=== PATIENT | female | born 1985 | race Asian ===

== ENCOUNTER 2022-07-27 05:40 | Inpatient (IN) ==
--- NOTE | 2022-07-21 08:39 | Anesthesiology Consultation ---
Date of Service July 21, 2022 Assessment & Plan (1) Encounter for pre-operative examination: Plan - COVID screening: Per wildfire prevention specialist on 07/20/2022: Travel screen negative, no known COVID-19 positive contacts or current COVID-19 related symptoms in past 2 weeks. To surgeon's discretion if preop COVID testing is needed. Chart Review Chart Review: Acceptable Risk for Surgery and Patient NOT seen in Pre Admission Testing History Surgery Operation Date: 07/27/22 07:30 Proposed Procedures p Primary Section in LD - Andree Fairbanks MD Height/Weight Height: 5 ft 4.5 in Weight: 87.997 kg Allergies Allergy/AdvReac Type Severity Reaction Status Date / Time phentermine AdvReac Anxiety, Verified 07/20/22 11:19 insomnia, palpitations Medications Home Medications Medication Instructions Recorded Confirmed Last Taken 1 tab PO QPM 07/20/22 07/20/22 Unknown iron 1 cap PO QAM 07/20/22 07/20/22 Unknown Past Medical History Medical History Anxiety Endometriosis GERD (gastroesophageal reflux disease) diet controlled History of migraine Iron deficiency anemia recent iron infusions PCOS (polycystic ovarian syndrome) TMJ (temporomandibular joint disorder) hx locking Past Family History Family History Other Adopted Past Surgical History Surgical History H/O ovarian cystectomy BL History of loop electrical excision procedure (LEEP) History of wisdom tooth extraction Social History Smoking Status: Never smoker Do You Dip or Chew Tobacco: No Hx Alcohol Use: No Hx Substance Use: No substance use type: does not use Testing Laboratory Results 07/20/2022 WBC: 8.9 H/H: 12/39 PLATELETS: 198
--- NOTE | 2022-07-26 14:19 | History & Physical Report ---
Date of Service July 26, 2022 Assessment & Plan (1) Breech presentation on examination: Plan: 36 yo at 39+ wks with breech presentation Scheduked for primary CSection VSS afebrile FHR reassuring Understands the risks and signed an informed consent plan to admit, monitor, labs, and proceed with surgery as planned (2) Encounter for pre-operative examination: History of Present Illness Chief Complaint: scheduled csection Primary Care Provider: Margaret Adhikari MD patient is a 36 yo at 39+ weeks who was scheduled for primary CSection for breech presentation. No complaints. Patient understands C section is a major surgery, with risks including but not limited to bleeding , infection, injury to surrounding organs like bowels, bladder, ureters, adhesions, scarring, wound infection, blood cloths in legs/ lungs, longer recovery. All questions were answered. She signed an informed consent. Allergies Allergy/AdvReac Type Severity Reaction Status Date / Time phentermine AdvReac Anxiety, Verified 07/20/22 11:19 insomnia, palpitations Home Medications Medication Instructions Recorded Confirmed Type 1 tab PO QPM 07/20/22 07/20/22 History iron 1 cap PO QAM 07/20/22 07/20/22 History Patient History Medical History Anxiety Endometriosis GERD (gastroesophageal reflux disease) diet controlled History of migraine Iron deficiency anemia recent iron infusions PCOS (polycystic ovarian syndrome) TMJ (temporomandibular joint disorder) hx locking Surgical History H/O ovarian cystectomy BL History of loop electrical excision procedure (LEEP) History of wisdom tooth extraction Family History Other Adopted Social History Smoking Status: Never smoker Second Hand Exposure: No; Do You Dip or Chew Tobacco: No; Hx Alcohol Use: No Hx Substance Use: No Preferred Language: Persian Communication Ability: Effective Registered Dietician Required: No Beliefs That Will Affect Care: None Current Living Situation: Family Feels Safe at Home: Yes Safety Concerns: Feels Safe At This Time Assistive Devices: Glasses Review of Systems as per Subjective / HPI Physical Exam Constitutional: WD/WN, vitals as above well developed, well nourished and comfortable Gastrointestinal (Abdomen): normal bowel sounds, soft, nontender, no hepatosplenomegaly (gravid) Genitourinary: OB Exam Monitor Tracing: + external uterine monitor used and + category I
[~2022-07-27 05:40] MED LIST: LACTATED RINGER'S 1,000 ML IV SCH
[2022-07-27] MEDS ORDERED: ceFAZolin 2000MG 2,000 MG/15 ML SYR IV SCH (06:00)
[2022-07-27] MEDS ORDERED: CITRIC ACID/SODIUM CITRATE 15 ML UDC PO SCH ×2 (06:00)
--- NOTE | 2022-07-27 06:31 | History and Physical Report ---
DATE OF ADMISSION: 07/27/2022. HISTORY OF PRESENT ILLNESS: The patient is a 36-year-old G1, P0, due date 07/29/2022, here for section. Fetus is in transverse presentation. course is unremarkable, except for advanced maternal age. PAST MEDICAL HISTORY: No history of diabetes, hypertension, or asthma. The patient has history of PCOS. PAST SURGICAL HISTORY: The patient had bilateral ovarian cystectomy. SOCIAL HISTORY: The patient denies tobacco, drug, or alcohol use. FAMILY HISTORY: Noncontributory. PHYSICAL EXAMINATION: GENERAL: A well-developed, well-nourished white female in no acute distress. VITAL SIGNS: Blood pressure 123/83, pulse of 67. HEART: S1 and S2, regular rhythm and rate. LUNGS: Clear to auscultation bilaterally. ABDOMEN: Gravid. Bedside ultrasound shows transverse presentation with back down. EXTREMITIES: No cyanosis, clubbing or edema. ASSESSMENT AND PLAN: A 36-year-old G1, P0 at term, transverse presentation. The patient wishes to have section. Discussed with the patient options including version. Risks of surgery discussed with the patient including infection, bleeding, damage to structures around where surgery has been performed. We also discussed risks of venous thrombolic embolism. Consent is signed. Surgery will proceed as scheduled. Job ID: [id number] [facility]
[2022-07-27 06:32] LABS: Basophils # (auto) 0.03 K/uL (0-0.2); Basophils % (auto) 0.4 %; Eosinophils % (auto) 1.3 %; Hematocrit (blood only) 35.1 % (37.0-47.0); Hemoglobin 11.7 g/dl (12.0-16.0); Immature Granulocytes # (auto) 0.06 K/uL (0.01-0.20); Immature Granulocytes % (auto) 0.8 %; Lymphocytes # (auto) 2.51 K/uL (1.2-3.4); Lymphocytes % (auto) 32.8 %; Mean Corpuscular Hemoglobin 28.8 pg (25.0-34.0); Mean Corpuscular Hgb Conc 33.3 g/dL (32.0-36.0); Mean Corpuscular Volume 86.5 fL (80.0-100.0); Mean Platelet Volume 10.8 fL (9.4-12.4); Monocytes # (auto) 0.32 K/uL (0.11-0.59); Monocytes % (auto) 4.2 %; Neutrophils # (auto) 4.63 K/uL (1.40-6.50); Neutrophils % (auto) 60.5 %; Platelet Count 184 K/uL (130-400); RDW Coefficient of Variation 13.6 % (11.5-14.5); RDW Standard Deviation 42.5 fL (36.4-46.3); Red Blood Count 4.06 M/uL (4.20-5.40); White Blood Count 7.65 K/ul (4.8-10.8)
[2022-07-27] MEDS ORDERED: MoRPHine SULFATE PF 1 MG/ML 10 ML AMP/VIAL ONE (06:57)
[2022-07-27] MEDS ORDERED: fentaNYL citrate PF 100 MCG/2 ML VIAL ONE (06:57)
[2022-07-27] MEDS ORDERED: ONDANSETRON INJ 2 MG/ML 2 ML VIAL ONE (06:57)
[2022-07-27] MEDS ORDERED: KETOROLAC 30 MG/ML VIAL ONE (06:57)
[2022-07-27] MEDS ORDERED: OXYTOCIN 10 UNITS/ML 10ML VIAL ONE (06:57)
[2022-07-27] MEDS ORDERED: PHENYLEPHRINE HCL 10 MG/ML VIAL ONE (06:57)
--- NOTE | 2022-07-27 07:39 | History & Physical Report ---
Date of Service July 27, 2022 Assessment & Plan (1) Encounter for pre-operative examination: (2) Transverse lie: Plan: Patient is a 36 yo at 39+ weeks who was scheduled for primary C Section for transverse presentation. VSS Afebrile FHR reassuring Plan to admit, monitor, lbs, IVF, IV AB and proceed with surgery as planned All questions were answered. Admission and Anticipated Discharge Date Admission Date: July 27, 2022 History of Present Illness Primary Care Provider: Margaret Adhikari MD Patient is a 36 yo at 39+ weeks who was scheduled for primary C Section for transverse presentation. No complaints. No ctxs/ LOF/VB +FM Her has been uncomplicated except above. Patient understands C section is a major surgery, with risks including but not limited to bleeding , infection, injury to surrounding organs like bowels, bladder, ureters, adhesions, scarring, wound infection, blood cloths in legs/ lungs, longer recovery. All questions were answered. She signed an informed consent. Allergies Allergy/AdvReac Type Severity Reaction Status Date / Time phentermine AdvReac Anxiety, Verified 07/20/22 11:19 insomnia, palpitations Home Medications Medication Instructions Recorded Confirmed Type 1 tab PO QPM 07/20/22 07/20/22 History iron 1 cap PO QAM 07/20/22 07/20/22 History Patient History Medical History Anxiety Endometriosis GERD (gastroesophageal reflux disease) diet controlled History of migraine Iron deficiency anemia recent iron infusions PCOS (polycystic ovarian syndrome) TMJ (temporomandibular joint disorder) hx locking Surgical History H/O ovarian cystectomy BL History of loop electrical excision procedure (LEEP) History of wisdom tooth extraction Family History Other Adopted Social History Smoking Status: Never smoker Second Hand Exposure: No; Hx Alcohol Use: No Hx Substance Use: No Preferred Language: Citizen Of [place] Communication Ability: Effective Application Packaging Consultant Required: No Beliefs That Will Affect Care: None marital status: Current Living Situation: Spouse and Parent Feels Safe at Home: Yes Assistive Devices: Glasses Review of Systems as per Subjective / HPI Physical Exam Constitutional: WD/WN, vitals as above well developed, well nourished and comfortable Gastrointestinal (Abdomen): normal bowel sounds, soft, nontender, no hepatosplenomegaly (gravid) Genitourinary: OB Exam Monitor Tracing: + external uterine monitor used and + category I Results & Data ([facility]) Vital Signs (Past 12 Hours) Vital Signs Temp Pulse Resp BP 07/27/22 06:00 36.7 C 67 16 123/83 07/27/22 07:05 77 132/76 07/27/22 05:56 67 123/83
[2022-07-27] MEDS ORDERED: MoRPHine SULFATE PF 1 MG/ML 10 ML AMP/VIAL INT SPINAL ONE (08:37)
[2022-07-27] MEDS ORDERED: NALBUPHINE HCL INJ 10 MG/ML AMP IV PRN (08:37)
[2022-07-27] MEDS ORDERED: ePHEDrine sulfate 50 MG/ML AMP IV PRN (08:37)
[2022-07-27] MEDS ORDERED: NALOXONE HCL 0.08 MG in SYRINGE 1.8 ML IV PRN (08:37)
[2022-07-27] MEDS ORDERED: NALOXONE HCL 1 MG in SODIUM CHLORIDE 0.9% 1000ML 1,000 ML IV PRN (08:37)
[2022-07-27] MEDS ORDERED: ACETAMINOPHEN 1,000 MG/100 ML VIAL IV PRN (08:37)
[2022-07-27] MEDS ORDERED: HYDROmorphone INJ 0.5 MG/0.5 ML SYR IV PRN (08:37)
[2022-07-27] MEDS ORDERED: diphenhydrAMINE 50 MG/ML VIAL IV PRN (08:37)
[2022-07-27] MEDS ORDERED: NALOXONE HCL 0.4 MG/1 ML VIAL/CARP IV PRN (08:37)
[2022-07-27] MEDS ORDERED: ONDANSETRON INJ 2 MG/ML 2 ML VIAL IV PRN (08:37)
[2022-07-27] MEDS ORDERED: LACTATED RINGER'S 500 ML IV PRN (08:37)
[2022-07-27] MEDS ORDERED: PROMETHAZINE HCL 12.5 MG in SODIUM CHLORIDE 0.9% 50 ML IV PRN (08:37)
[2022-07-27] MEDS ORDERED: DC INTRASPINAL MORPHINE SCH (08:45)
[2022-07-27] MEDS ORDERED: NO NARCOTICS OR SEDATIVES SCH (08:45)
[2022-07-27] MEDS ORDERED: SODIUM CHLORIDE 0.9% 1000ML 1,000 ML IV SCH (08:45)
[2022-07-27] MEDS ORDERED: SENNA 8.6 MG TAB PO PRN (09:22)
[2022-07-27] MEDS ORDERED: HYDROCORTISONE ACETATE 25 MG SUPP PR PRN (09:22)
[2022-07-27] MEDS ORDERED: MEASLES, MUMPS & RUBELLA VIRUS VIAL SQ ONE (09:22)
[2022-07-27] MEDS ORDERED: DIPHTHERIA/TETANUS/PERTUSSIS 0.5mL SYR/VIAL (Age 7+yrs) IM ONE (09:22)
[2022-07-27] MEDS ORDERED: MAGNESIUM HYDROXIDE SUSP 30 ML UDC PO PRN (09:22)
[2022-07-27] MEDS ORDERED: BENZOCAINE 20% AER SPR 82.5 GM CAN EXT PRN (09:22)
--- NOTE | 2022-07-27 09:25 | Post Operative Brief Note ---
Immediate Post Op Note v1 Date of Surgery July 27, 2022 Pre & Post Diagnosis Operation Date: 07/27/22 07:30 Pre-Op Diagnosis: 1. Term 2. Transverse lie Post-Op Diagnosis: Same I identified the patient and participated in the time-out.: Yes Procedure Operation Date: 07/27/22 07:30 Actual Procedures p Primary Section with the of a live male child at 0840. - Andree Fairbanks MD Surgeon Andree Fairbanks MD Signaling Project Engineer Dr Gaona Estimated Blood Loss 600 Findings Consistent with Post-Op Diagnosis Drains Horan Catheter (Horan cath placed after spinal. Clear yellow urine noted upon insertion of horan. ) Anesthesia Type Spinal Complications none Disposition Accompanied Patient To Recovery: Yes
[2022-07-27] MEDS ORDERED: LACTATED RINGER'S 1,000 ML IV SCH ×2 (09:30→14:45)
[2022-07-27] MEDS ORDERED: ARISTA ABSORBABLE HEMOSTAT 3GM TOP ONE (09:47)
--- NOTE | 2022-07-27 10:42 | Operative Report (OR) ---
DATE OF SURGERY: 07/27/2022. PREOPERATIVE DIAGNOSIS: The patient is a 36-year-old 1, para 0 at 39 weeks and 5 days of gestation, who was scheduled for primary for transverse lie of fetus. POSTOPERATIVE DIAGNOSIS: The patient is a 36-year-old 1, para 0 at 39 weeks and 5 days of gestation, who was scheduled for primary for transverse lie of fetus. PROCEDURE: Primary low transverse with Pfannenstiel skin incision and delivery of a live male at 8:40 a.m. SURGEON: Andree Fairbanks MD. GRATING MACHINE OPERATOR: Molly Gaona MD. ESTIMATED BLOOD LOSS: 600 mL DRAINS: Burger catheter drained 200 mL of clear urine. ANESTHESIA: Spinal. ANESTHESIOLOGIST: Dr. Fox. COMPLICATIONS: None. FINDINGS: Baby was a viable male infant delivered in transverse lie presentation at 8:40 a.m. Apgars were 8/9, weight is 3375 gr. Maternal findings: The patient had a history of bilateral ovarian cystectomies for endometriosis. Uterus appeared to be normal, except increased vascularity in the anterior wall and cul-de-sac was obliterated from prior surgery and most likely from adhesions and endometriosis. Unable to see fallopian tubes or ovaries. DESCRIPTION OF PROCEDURE: The patient was taken to the operating room where spinal anesthesia was given without difficulty. She was placed in dorsal supine position with a leftward tilt. She was prepared and draped in the usual sterile fashion. A Pfannenstiel skin incision was made, carried through to the underlying layer of fascia with the Bovie. Fascia was incised in the midline and incision was extended laterally with the help of Valenzuela scissors and fascia was dissected from rectus muscles superiorly and inferiorly and the rectus muscles were in the midline and the peritoneum was then entered bluntly with fingers. Peritoneal incision was extended superiorly and inferiorly with good visualization of the bladder. Bladder blade was inserted. Uterus was tilted toward the patient's left and the front anterior serosa had increased vascularity and the bladder was very low down in the pelvis, unable to grasp vesicouterine peritoneum. Decision was made to proceed with the uterine incision as low transverse as planned. Uterus was incised in the lower segment and the incision was extended laterally with the help of fingers and membranes were ruptured. Clear fluid was obtained. The baby was in the transverse lie position, head on the right and feet on the left and I was able to grasp the one fett and leg and then the other one and brought to the incision and delivered both feet, legs, buttocks and body, and then arms in flexion position and the head without difficulty. Mouth and nose were suctioned. Cord was clamped x2 and cut and baby was handed off to the waiting pediatric team and then cord blood was obtained. Placenta was delivered manually as intact and complete. Uterus was exteriorized and cleared of all clots and debris. Uterine incision was repaired with 0 Vicryl in a running locked fashion. Second imbricating layer was placed with another 0 Vicryl in a running locked fashion. Excellent hemostasis was achieved. We were unable to see the ovaries and fallopian tubes due to the adhesion on the posterior cul-de-sac. Uterus was returned to the abdomen. Pelvis was irrigated with warm normal saline and suctioned and the gutters were also irrigated with warm normal saline and suctioned and excellent hemostasis was achieved. Parietal peritoneum was reapproximated with 3-0 Vicryl in a running fashion and the rectus muscles were reapproximated with 2-0 Vicryl in a running fashion. Excellent hemostasis was achieved. Rectus fascia was reapproximated with 0 Vicryl, starting from both corners meeting in the midline and then subcuticular fat tissue was brought together with 3-0 Vicryl in a running fashion and the skin was closed with 4-0 Monocryl in a subcuticular fashion. The patient tolerated the procedure well. Sponge, lap, needle and instrument count was correct x3. No complications happened. I was and Dr. Gaona was present during whole procedure. She has received 2 grams of Cefazolin before surgery and was taken to recovery room in stable condition. Dr. Gaona, my care management assistant, was needed for retraction, aid in delivery of and hemostasis. Job ID: [id number] [facility]
[2022-07-27] MEDS: OXYTOCIN 20 UNITS in LACTATED RINGER'S 1,000 ML IV SCH ×2 (11:06→19:44)
--- NOTE | 2022-07-27 11:10 | Anesthesiology Progress Note ---
Date of Service July 27, 2022 Anesthesia Post Procedure Vital Signs Vital Signs: Temp Pulse Resp BP Pulse Ox 07/27/22 10:34 22 07/27/22 10:24 16 07/27/22 10:14 16 07/27/22 09:54 18 07/27/22 10:04 18 07/27/22 09:44 18 07/27/22 09:34 97.7 F 20 07/27/22 06:00 98.1 F 67 16 123/83 07/27/22 11:07 67 98 07/27/22 11:03 62 105/66 07/27/22 11:02 62 99 07/27/22 10:57 64 98 07/27/22 10:53 63 105/65 07/27/22 10:52 64 98 07/27/22 10:47 62 98 07/27/22 10:43 64 102/60 07/27/22 10:42 65 97 07/27/22 10:37 74 96 07/27/22 10:33 65 100/61 07/27/22 10:32 69 97 07/27/22 10:27 69 98 07/27/22 10:23 64 98/61 L 07/27/22 10:22 70 97 07/27/22 10:17 64 97 07/27/22 10:13 64 102/62 07/27/22 10:12 66 97 07/27/22 10:07 67 97 07/27/22 10:03 64 96/61 L 07/27/22 10:02 69 97 07/27/22 09:57 66 98 07/27/22 09:54 66 91/54 L 07/27/22 09:52 69 98 07/27/22 09:47 65 98 07/27/22 09:44 63 99/58 L 07/27/22 09:42 61 98 07/27/22 09:41 61 101/56 L 07/27/22 09:37 63 98 07/27/22 09:33 59 L 98/56 L 07/27/22 09:31 58 L 99 07/27/22 09:28 59 L 100/59 L 07/27/22 07:05 77 132/76 07/27/22 05:56 67 123/83 Transfer of Care Handoff Completed per policy Notes Mental Status: alert / awake / arousable and participated in evaluation Patient Amnestic to Procedure: Yes Nausea / Vomiting: adequately controlled Pain: adequately controlled Airway Patency, RR, SpO2: stable & adequate BP & HR: stable & adequate Hydration State: stable & adequate Neuraxial Anesthesia: was administered and sensory block is resolving Anesthetic Complications: no major complications apparent and Pt Satisfied with anesthetic care
[2022-07-27] MEDS: SIMETHICONE 80 MG CHEW PO SCH ×3 (13:45→21:11)
[2022-07-27] MEDS: KETOROLAC 30 MG/ML VIAL IV PRN ×2 (16:28→23:31)
[2022-07-27] MEDS: DOCUSATE SODIUM 100 MG CAP PO SCH (21:11)
[2022-07-28] MEDS ORDERED: diphenhydrAMINE Capsule 25 MG CAP PO PRN (02:37)
[2022-07-28] MEDS ORDERED: PROMETHAZINE HCL 25 MG in SODIUM CHLORIDE 0.9% 50 ML IV PRN (02:37)
[2022-07-28] MEDS ORDERED: diphenhydrAMINE 50 MG/ML VIAL IV PRN (02:37)
[2022-07-28] MEDS ORDERED: ONDANSETRON INJ 2 MG/ML 2 ML VIAL IV PRN (02:37)
[2022-07-28] MEDS ORDERED: MEPERIDINE HCL 50 MG/ML CARP IV PRN (02:37)
[2022-07-28] MEDS: oxyCODONE/ACETAMINOPHEN 5mg/325mg TAB PO PRN ×4 (03:33→21:21)
[2022-07-28] MEDS: IBUPROFEN 600 MG TAB PO PRN ×4 (03:34→21:22)
[2022-07-28 07:06] LABS: Basophils # (auto) 0.03 K/uL (0-0.2); Basophils % (auto) 0.2 %; Eosinophils % (auto) 0.8 %; Hematocrit (blood only) 27.1 % (37.0-47.0); Hemoglobin 9.1 g/dl (12.0-16.0); Immature Granulocytes # (auto) 0.08 K/uL (0.01-0.20); Immature Granulocytes % (auto) 0.6 %; Lymphocytes % (auto) 14.5 %; Mean Corpuscular Hgb Conc 33.6 g/dL (32.0-36.0); Mean Corpuscular Volume 86.3 fL (80.0-100.0); Mean Platelet Volume 10.1 fL (9.4-12.4); Monocytes # (auto) 0.44 K/uL (0.11-0.59); Monocytes % (auto) 3.5 %; Neutrophils % (auto) 80.4 %; Platelet Count 151 K/uL (130-400); RDW Coefficient of Variation 13.7 % (11.5-14.5); RDW Standard Deviation 42.5 fL (36.4-46.3); Red Blood Count 3.14 M/uL (4.20-5.40); White Blood Count 12.45 K/ul (4.8-10.8)
[2022-07-28] MEDS: SIMETHICONE 80 MG CHEW PO SCH ×3 (08:04→16:40)
[2022-07-28] MEDS: PRENATAL VITAMIN 1 TAB PO SCH (08:04)
[2022-07-28] MEDS: FERROUS SULFATE 325 MG TAB PO SCH (08:04)
[2022-07-28] MEDS: DOCUSATE SODIUM 100 MG CAP PO SCH ×2 (08:05→21:22)
--- NOTE | 2022-07-28 11:04 | Obstetrical Progress Note ---
Date of Service July 28, 2022 Subjective Ambulation: limited ambulation Voiding: no voiding problems Passing Gas:: Yes Diet Tolerance:: regular diet Lochia:: Small Feeding Type:: breast feeding Current Pain Level(1-10): 0 doing well. some difficulty with breast feeding Physical Exam Constitutional WD/WN, vitals as above Gastrointestinal (Abdomen) Inspection/Auscultation: abdomen normal to inspection abdomen soft and non-tender. incision c/d/i Results & Data Vital Signs (Past 12 Hours) Vital Signs Temp Pulse Pulse Resp BP Pulse Ox O2 Del Method 07/28/22 07:55 36.7 C 73 18 105/55 L 97 Room Air 07/28/22 03:00 36.9 C 69 18 101/64 98 Room Air 07/28/22 01:45 18 98 07/28/22 02:35 18 98 07/28/22 03:00 18 98 07/28/22 00:51 18 98 07/27/22 23:40 18 98 07/27/22 23:40 36.8 C 67 18 107/68 98 Room Air Laboratory Results Laboratory Results - last 72 hr 07/27/22 07/27/22 07/27/22 05:57 05:57 Unknown WBC 7.65 RBC 4.06 L Hgb 11.7 L Hct 35.1 L MCV 86.5 MCH 28.8 MCHC 33.3 RDW Std Deviation 42.5 RDW Coeff of [place] 13.6 Plt Count 184 MPV 10.8 Immature Gran % (Auto) 0.8 Neut % (Auto) 60.5 Lymph % (Auto) 32.8 [place] % (Auto) 4.2 Eos % (Auto) 1.3 Baso % (Auto) 0.4 Neut # (Auto) 4.63 Lymph # (Auto) 2.51 [place] # (Auto) 0.32 Eos # (Auto) 0.10 Baso # (Auto) 0.03 Immature Gran # (Auto) 0.06 SARS-CoV-2, RNA, NAAT NEGATIVE Blood Type O Positive Antibody Screen NEGATIVE 07/28/22 06:42 WBC 12.45 H RBC 3.14 L Hgb 9.1 L Hct 27.1 L MCV 86.3 MCH 29.0 MCHC 33.6 RDW Std Deviation 42.5 RDW Coeff of [place] 13.7 Plt Count 151 MPV 10.1 Immature Gran % (Auto) 0.6 Neut % (Auto) 80.4 Lymph % (Auto) 14.5 [place] % (Auto) 3.5 Eos % (Auto) 0.8 Baso % (Auto) 0.2 Neut # (Auto) 10.00 H Lymph # (Auto) 1.80 [place] # (Auto) 0.44 Eos # (Auto) 0.10 Baso # (Auto) 0.03 Immature Gran # (Auto) 0.08 SARS-CoV-2, RNA, NAAT Blood Type Antibody Screen
[2022-07-28] MEDS ORDERED: bisacodyL 5 MG TABEC PO SCH (20:00)
[2022-07-29] MEDS: IBUPROFEN 600 MG TAB PO PRN ×4 (02:55→19:11)
[2022-07-29] MEDS: oxyCODONE/ACETAMINOPHEN 5mg/325mg TAB PO PRN ×4 (03:01→19:11)
[2022-07-29 07:29] LABS: Hematocrit (blood only) 27.3 % (37.0-47.0)
[2022-07-29] MEDS: DOCUSATE SODIUM 100 MG CAP PO SCH ×2 (09:00→21:34)
[2022-07-29] MEDS: FERROUS SULFATE 325 MG TAB PO SCH (09:00)
[2022-07-29] MEDS: PRENATAL VITAMIN 1 TAB PO SCH (09:00)
[2022-07-29] MEDS: SIMETHICONE 80 MG CHEW PO SCH ×5 (09:00→21:34)
[2022-07-29] MEDS ORDERED: bisacodyL 10 MG SUPP PR PRN (09:22)
[2022-07-29] MEDS ORDERED: MAGNESIUM HYDROXIDE SUSP 30 ML UDC PO PRN (10:03)
--- NOTE | 2022-07-29 10:03 | Obstetrical Progress Note ---
Date of Service July 29, 2022 Assessment & Plan Admission and Anticipated Discharge Date Admission Date: July 27, 2022 Subjective Patient is seen and examined. She feels well, no complaints. Pain is under control with oral meds. Ambulating without dizziness Voiding without difficulty Tolerating regular diet with out N&V Flatus + BM neg Bleeding is minimal No fever/ chills/ CP/ SOB/ N&V/ Leg pain Breast and bottle feeding without problems Vital Signs Temp Pulse Resp BP Pulse Ox O2 Del Method 07/29/22 07:44 36.6 C 68 16 125/85 98 Room Air 07/29/22 00:25 36.9 C 83 18 106/78 98 Room Air Lab Results 07/27/22 07/27/22 07/27/22 Range/Units 05:57 05:57 Unknown WBC 7.65 (4.8-10.8) K/ul RBC 4.06 L (4.20-5.40) M/uL Hgb 11.7 L (12.0-16.0) g/dl Hct 35.1 L (37.0-47.0) % MCV 86.5 (80.0-100.0) fL MCH 28.8 (25.0-34.0) pg MCHC 33.3 (32.0-36.0) g/dL RDW Std Deviation 42.5 (36.4-46.3) fL RDW Coeff of [place] 13.6 (11.5-14.5) % Plt Count 184 (130-400) K/uL MPV 10.8 (9.4-12.4) fL Immature Gran % (Auto) 0.8 % Neut % (Auto) 60.5 % Lymph % (Auto) 32.8 % [place] % (Auto) 4.2 % Eos % (Auto) 1.3 % Baso % (Auto) 0.4 % Neut # (Auto) 4.63 (1.40-6.50) K/uL Lymph # (Auto) 2.51 (1.2-3.4) K/uL [place] # (Auto) 0.32 (0.11-0.59) K/uL Eos # (Auto) 0.10 (0-0.50) K/uL Baso # (Auto) 0.03 (0-0.2) K/uL Immature Gran # (Auto) 0.06 (0.01-0.20) K/uL SARS-CoV-2, RNA, NAAT NEGATIVE (NEGATIVE) Blood Type O Positive Antibody Screen NEGATIVE 07/28/22 07/29/22 Range/Units 06:42 06:33 WBC 12.45 H (4.8-10.8) K/ul RBC 3.14 L (4.20-5.40) M/uL Hgb 9.1 L 9.0 L (12.0-16.0) g/dl Hct 27.1 L 27.3 L (37.0-47.0) % MCV 86.3 (80.0-100.0) fL MCH 29.0 (25.0-34.0) pg MCHC 33.6 (32.0-36.0) g/dL RDW Std Deviation 42.5 (36.4-46.3) fL RDW Coeff of [place] 13.7 (11.5-14.5) % Plt Count 151 (130-400) K/uL MPV 10.1 (9.4-12.4) fL Immature Gran % (Auto) 0.6 % Neut % (Auto) 80.4 % Lymph % (Auto) 14.5 % [place] % (Auto) 3.5 % Eos % (Auto) 0.8 % Baso % (Auto) 0.2 % Neut # (Auto) 10.00 H (1.40-6.50) K/uL Lymph # (Auto) 1.80 (1.2-3.4) K/uL [place] # (Auto) 0.44 (0.11-0.59) K/uL Eos # (Auto) 0.10 (0-0.50) K/uL Baso # (Auto) 0.03 (0-0.2) K/uL Immature Gran # (Auto) 0.08 (0.01-0.20) K/uL SARS-CoV-2, RNA, NAAT (NEGATIVE) Blood Type Antibody Screen PE: General: Alert, orientedx3, NAD CVS: S1S2 RRR Lungs; CTAB Abd: soft, NT, ND, BS+, fundus firm, below Umbilicus Incision: Clean, dry, intact Perineum intact, Lochia rubra minimal Ext; NT, no edema AP: 36 yo s/p C Section, pod# 2 VSS Afebrile doing well Continue routine postop care Encourage ambulation, PO intake All questions were answered D/C home tomorrow Results & Data Vital Signs (Past 12 Hours) Vital Signs Temp Pulse Resp BP Pulse Ox O2 Del Method 07/29/22 07:44 36.6 C 68 16 125/85 98 Room Air 07/29/22 00:25 36.9 C 83 18 106/78 98 Room Air
[2022-07-30] MEDS: oxyCODONE/ACETAMINOPHEN 5mg/325mg TAB PO PRN ×2 (03:44→08:35)
[2022-07-30] MEDS: IBUPROFEN 600 MG TAB PO PRN ×2 (03:45→08:35)
--- NOTE | 2022-07-30 08:19 | Obstetrical Progress Note ---
Date of Service July 30, 2022 Assessment & Plan (1) Normal course: Continue care Discharge home today with follow-up in clinic in 1 week for incision check, and 3 and 6 weeks Good hydration, stool softeners and milk of magnesia as needed to help with bowel movements. Subjective Ambulation: ambulating normally Voiding: no voiding problems Passing Gas:: Yes Diet Tolerance:: regular diet Lochia:: Small Feeding Type:: breast feeding Current Pain Level(1-10): 1 Doing well, no BM yet. Passing gas Breast/pumping/supplementing (triple feeding) at this time Wants to go home today Physical Exam Constitutional WD/WN, vitals as above Respiratory normal respiratory effort, lungs clear to auscultation Cardiovascular RRR, no murmur, no edema Gastrointestinal (Abdomen) normal bowel sounds, soft, nontender, no hepatosplenomegaly Incision clean dry intact and well healing Results & Data Vital Signs (Past 12 Hours) Vital Signs Temp Pulse Resp BP Pulse Ox O2 Del Method 07/29/22 23:21 36.8 C 64 18 119/77 97 Room Air Laboratory Results Laboratory Results WBC 12.45 K/ul (4.8-10.8) H 07/28/22 06:42 RBC 3.14 M/uL (4.20-5.40) L 07/28/22 06:42 Hgb 9.0 g/dl (12.0-16.0) L 07/29/22 06:33 Hct 27.3 % (37.0-47.0) L 07/29/22 06:33 MCV 86.3 fL (80.0-100.0) 07/28/22 06:42 MCH 29.0 pg (25.0-34.0) 07/28/22 06:42 MCHC 33.6 g/dL (32.0-36.0) 07/28/22 06:42 RDW Std Deviation 42.5 fL (36.4-46.3) 07/28/22 06:42 RDW Coeff of Kamer[place] 13.7 % (11.5-14.5) 07/28/22 06:42 Plt Count 151 K/uL (130-400) 07/28/22 06:42 MPV 10.1 fL (9.4-12.4) 07/28/22 06:42 Immature Gran % (Auto) 0.6 % 07/28/22 06:42 Neut % (Auto) 80.4 % 07/28/22 06:42 Lymph % (Auto) 14.5 % 07/28/22 06:42 [place] % (Auto) 3.5 % 07/28/22 06:42 Eos % (Auto) 0.8 % 07/28/22 06:42 Baso % (Auto) 0.2 % 07/28/22 06:42 Neut # (Auto) 10.00 K/uL (1.40-6.50) H 07/28/22 06:42 Lymph # (Auto) 1.80 K/uL (1.2-3.4) 07/28/22 06:42 [place] # (Auto) 0.44 K/uL (0.11-0.59) 07/28/22 06:42 Eos # (Auto) 0.10 K/uL (0-0.50) 07/28/22 06:42 Baso # (Auto) 0.03 K/uL (0-0.2) 07/28/22 06:42 Immature Gran # (Auto) 0.08 K/uL (0.01-0.20) 07/28/22 06:42 SARS-CoV-2, RNA, NAAT NEGATIVE (NEGATIVE) 07/27/22 Unknown Blood Type O Positive 07/27/22 05:57 Antibody Screen NEGATIVE 07/27/22 05:57
[2022-07-30] MEDS: FERROUS SULFATE 325 MG TAB PO SCH (08:33)
[2022-07-30] MEDS: PRENATAL VITAMIN 1 TAB PO SCH (08:34)
[2022-07-30] MEDS: DOCUSATE SODIUM 100 MG CAP PO SCH (08:34)
[2022-07-30] MEDS: SIMETHICONE 80 MG CHEW PO SCH (08:34)
== END 2022-07-30 13:30 | disposition home or self-care (01) | DRG 788 ==
LOC: 4S1 05:40 → EDSTATUS 07:30 → 4E2 12:18
DX: Z3A.39 39 weeks gestation of pregnancy; Z88.8 Allergy status to other drugs, medicaments and biological substances; O32.2XX0 Maternal care for transverse and oblique lie, not applicable or unspecified; Z37.0 Single live birth